=== PATIENT | male | born 1940 | race Caucasian/White ===

== ENCOUNTER 2016-08-09 09:28 | Observation (INO) | payer MEDICARE ==
--- NOTE | 2016-08-09 09:44 | ED ---
General Adult HPI - General Stated complaint: Flank Pain Time Seen by Provider: 08/09/16 09:28 Source: RN notes reviewed - History of Present Illness Initial comments: This is a 75-year-old male who presents to the emergency department with bilateral rib and upper abdominal pain. Patient states his been ongoing for 3 weeks. Patient states it occurs typically after he is been laying down for a while and he tries to stand up and when he goes to stand up he has quite significant pain at or under the ribs on both sides anteriorly he states once he gets up and walks around the pain subsides and is pretty much good all day. Patient states if he takes a nap during the day it reoccurs. Patient states today he got up and the pain was so severe that he almost passed out. He did not pass out however. Patient states because of the severity of the pain today he went to the emergency department at [facility]. [facility] worked the patient up and did not find a cause for his pain and decided to transfer the patient to us in case the pain was neurological in nature. Patient states currently he is in no pain he stood up off the ambulance gurney onto the bed in the emergency department without eliciting any pain. Patient states at no time is short of breath he denies any recent fever or chills he's denied any recent injury patient denies any nausea vomiting diarrhea. Patient denies any anterior central chest pain. Patient states he believes the reason he almost passed out today was because of the severity of the pain. Patient denies any back pain. Patient denies any rashes or lesions. Patient states the episode of near-syncope only occurred this morning and at no other time - Related Data Home Medications Medication Instructions Recorded Confirmed Metoprolol Succinate [Toprol XL] 50 mg PO DAILY 08/09/16 08/09/16 Multivitamin [Men's Multi-Vitamin] 1 tab PO DAILY 08/09/16 08/09/16 Allergies Allergy/AdvReac Type Severity Reaction Status Date / Time No Known Allergies Allergy Verified 08/09/16 10:32 Review of Systems ROS Statement: Those systems with pertinent positive or pertinent negative responses have been documented in the HPI. ROS Other: All systems not noted in ROS Statement are negative. General Exam - General Exam Comments Initial Comments: GENERAL: Patient is well-developed and well-nourished. Patient is nontoxic and well- hydrated and is in no acute distress. ENT: Neck is soft and supple. No significant lymphadenopathy is noted. Oropharynx is clear. Moist mucous membranes. Neck has full range of motion without eliciting any pain. EYES: The sclera were anicteric and conjunctiva were pink and moist. Extraocular movements were intact and pupils were equal round and reactive to light. Eyelids were unremarkable. PULMONARY: Unlabored respirations. Good breath sounds bilaterally. No audible rales rhonchi or wheezing was noted. CARDIOVASCULAR: There is a regular rate and rhythm without any murmurs gallops or rubs. ABDOMEN: Soft and nontender with normal bowel sounds. No palpable organomegaly was noted. There is no palpable pulsatile mass. SKIN: Skin is clear with no lesions or rashes and otherwise unremarkable. NEUROLOGIC: Patient is alert and oriented x3. Cranial nerves II through XII are grossly intact. Motor and sensory are also intact. Normal speech, volume and content. Symmetrical smile. MUSCULOSKELETAL: Normal extremities with adequate strength and full range of motion. No lower extremity swelling or edema. No calf tenderness. LYMPHATICS: No significant lymphadenopathy is noted PSYCHIATRIC: Normal psychiatric evaluation. Normal interpersonal interactions appears functionally intact in deals appropriately with others. No signs of depression. No signs of anxiety. Course Vital Signs 08/09/16 08/09/16 08/09/16 09:36 09:44 09:51 Temperature 99.1 F Pulse Rate 97 78 84 Respiratory 16 16 18 Rate Blood Pressure 213/114 198/95 180/87 O2 Sat by Pulse 97 99 98 Oximetry 08/09/16 11:00 Temperature 97.5 F L Pulse Rate 84 Respiratory 16 Rate Blood Pressure 184/91 O2 Sat by Pulse 98 Oximetry Medical Decision Making - Medical Decision Making Patient states that he believes his abdomen seems more distended over the last 3 weeks and he also states that he hasn't had normal bowel movements recently. Patient states he also has been cutting on all sweets and beer because he thinks he was gaining weight. States to me that he has never had a colonoscopy. Disposition Clinical Impression: Near syncope, Upper abdominal pain Disposition: ADMITTED IP TO [facility] Time of Disposition: 11:32
[2016-08-09] MEDS ORDERED: LABETALOL SYRINGE 5 MG/ML IVP STA (09:45)
[2016-08-09] MEDS ORDERED: SODIUM CHLORIDE 0.9% 1,000 ML IV ONE (11:32)
[2016-08-09] MEDS ORDERED: ACETAMINOPHEN TAB 325 MG TAB PO PRN (14:49)
[2016-08-09] MEDS ORDERED: ALPRAZolam 0.25 MG TAB PO PRN (14:49)
[2016-08-09] MEDS ORDERED: ONDANSETRON 4 MG/2 ML VIAL IVP PRN (14:49)
[2016-08-09] MEDS ORDERED: traMADol 50 MG TAB PO PRN (14:49)
[2016-08-09] MEDS ORDERED: NALOXONE 0.4 MG/ML 1 ML VIAL IV PRN (14:49)
[2016-08-09] MEDS: ENOXAPARIN 40 MG/0.4 ML SYRINGE SQ SCH (17:01)
--- NOTE | 2016-08-09 19:08 | US ---
EXAMINATION TYPE: US carotid duplex BILAT DATE OF EXAM: 08/09/2016 4:55 PM COMPARISON: NONE CLINICAL HISTORY: syncope. EXAM MEASUREMENTS: RIGHT: Peak Systolic Velocity (PSV) cm/sec ----- Right CCA: 74.8 ----- Right ICA: 77.2 ----- Right ECA: 97.1 ICA/CCA ratio: 1.0 RIGHT: End Diastole cm/sec ----- Right CCA: 16.6 ----- Right ICA: 24.2 ----- Right ECA: 7.9 LEFT: Peak Systolic Velocity (PSV) cm/sec ----- Left CCA: 84.5 ----- Left ICA: 93.4 ----- Left ECA: 147.7 ICA/CCA ratio: 1.1 LEFT: End Diastole cm/sec ----- Left CCA: 13.4 ----- Left ICA: 26.8 ----- Left ECA: 11.2 VERTEBRALS (direction of flow): Right Vertebral: Antegrade Left Vertebral: Antegrade TECHNOLOGIST IMPRESSION: Patient had very tortuous vessels, no significant velocity elevations in bi lateral RENNY's IMPRESSION: There is antegrade flow in the vertebral arteries. The images and measurements suggest c lose to 20% stenosis in both internal carotid arteries. Criteria for Assigning % of Stenosis / Diameter reduction (Estimation based on the indirect measurements of the internal carotid artery velocities (ICA PSV). 1. Normal (no stenosis)=ICA PSV < 125 cm/s: ratio < 2.0: ICA EDV<40 cm/s. 2. Less than 50% stenosis=ICA PSV < 125 cm/s: ratio < 2.0: ICA EDV<40 cm/s. 3. 50 to 69% stenosis=ICA PSV of 125 to 230 cm/s: ration 2.0 ? 4.0: ICA EDV 40-100 cm/s. 4. Greater than 70% stenosis to near occlusion= ICA PSV > 230 cm/s: ratio > 4.0: ICA EDV > 100 cm/s. 5. Near occlusion= ICA PSV velocities may be low or undetectable: variable ratio and ICA EDV. 6. Total occlusion=unable to detect flow.
[2016-08-09] MEDS ORDERED: MAGNESIUM HYDROXIDE 2,400 MG/10 ML CUP PO PRN (20:34)
--- NOTE | 2016-08-09 20:37 | P.GSCN ---
History of Present Illness Consult date: 08/09/16 Reason for Consult: Abdominal pain History of present illness: Patient has had a three-week history of progressive abdominal bloating and discomfort. He states he is having more constipation than previously. Some mild nausea at times but no vomiting. He is passing flatus normally. No prior colonoscopy. He has also been having complaints of rib pain that particularly aggravated in the evening hours. He has tried dieting with no success. Denies rectal bleeding or melena. He was also having some neurologic issues and was sent to our hospital for evaluation. No x-rays obtained thus far. We are asked to see this patient for abdominal pain. 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 History of Any Multi-Drug Resistant Organisms: None Reported Past Surgical History: Adenoidectomy, Tonsillectomy Additional Past Surgical History / Comment(s): R eye muscle surgery, multiple basal skin cancer removals, melanoma removed from R side of neck. Past Anesthesia/Blood Transfusion Reactions: No Reported Reaction Additional Past Anesthesia/Blood Transfusion Reaction / Comm: Pt received blood as a child without reaction Past Psychological History: No Psychological Hx Reported Additional Psychological History / Comment(s): Pt resides with his spouse. He is independent. Smoking Status: Never smoker Past Alcohol Use History: None Reported, Daily, Occasional Additional Past Alcohol Use History / Comment(s): Pt drank beer regularly (over 14 beers a week) up until 3 weeks ago. Past Drug Use History: None Reported - Past Family History Father Family Medical History: Cancer Additional Family Medical History / Comment(s): Father had "heart problems". He of skin cancer (pt believes might have been melanom) at the age of 66yrs. Mother Additional Family Medical History / Comment(s): Mother had "heart problems". She at the age of 67yrs. Medications and Allergies Home Medications Medication Instructions Recorded Confirmed Type Metoprolol Succinate [Toprol XL] 50 mg PO DAILY 08/09/16 08/09/16 History Multivitamin [Men's Multi-Vitamin] 1 tab PO DAILY 08/09/16 08/09/16 History Allergies Allergy/AdvReac Type Severity Reaction Status Date / Time No Known Allergies Allergy Verified 08/09/16 10:32 Surgical - Exam Vital Signs Temp Pulse Resp BP Pulse Ox 99.1 F 97 16 213/114 97 08/09/16 09:36 08/09/16 09:36 08/09/16 09:36 08/09/16 09:36 08/09/16 09:36 Physical exam: General: Well-developed, well-nourished HEENT: Normocephalic, sclerae nonicteric Abdomen: Nontender, nondistended Extremities: No edema Neuro: Alert and oriented Assessment and Plan (1) Upper abdominal pain Narrative/Plan: Patient's rib pain may be on the basis of costochondritis. Chronic constipation will need to be addressed but likely could be evaluated by colonoscopy as an outpatient. We'll check abdominal x-rays. We'll also provide stool softeners at this time. If the patient's abdominal x-rays are nonspecific would advance diet at that time. Status: Acute
[2016-08-09] MEDS ORDERED: MELATONIN 3 MG TABLET PO PRN (21:00)
--- NOTE | 2016-08-09 21:09 | XR ---
EXAMINATION TYPE: XR abdomen complete w decub DATE OF EXAM: 08/09/2016 9:05 PM COMPARISON: NONE HISTORY: Constipation. Abdominal pain. TECHNIQUE: 5 views FINDINGS: There is no sign of intestinal obstruction or pneumoperitoneum. Fecal pattern is normal. There is no sign of a mass. Lung bases are clear. There are no pathologic calcifications over the kidneys. I see no significant retained fecal material. IMPRESSION: Nonacute abdomen. No sign of constipation.
[2016-08-09] MEDS ORDERED: LACTULOSE 20 GM/30 ML CUP PO ONE (22:15)
--- NOTE | 2016-08-09 22:53 | HP ---
DATE OF ADMISSION: 08/09/2016 PRESENTING COMPLAINT: Rib cage pain. Tired. HISTORY OF PRESENTING COMPLAINT: This is a 75-year-old patient of Dr. Helton who went down to [facility] this morning. Patient has been noting bilateral pain below the rib cage every time he tries to get up. He does okay getting around during the day. Patient also has noticed abdominal bloating going on for some time. Denies any edema. Patient has noticed some numbness and tingling in the feet. Patient was drinking at least 4 to 5 beers a day, 7 days a week, for over 50 years. About 3 weeks ago he started to cut back, started altering his diet in an attempt to get healthy. He was sent in because of workup for the same. Patient denies any focal weakness. No change in vision. No headaches. REVIEW OF SYSTEMS: CONSTITUTIONAL: Tired. HEENT: None. RESPIRATORY: None. CARDIOVASCULAR: None. GASTROINTESTINAL: Some constipation. GENITOURINARY: None. MUSCULOSKELETAL: As above. DERMATOLOGICAL: Some changes in the skin. HEMATOLOGICAL: None. LYMPHATICS: None. PSYCHIATRY: None. NEUROLOGICAL: Numbness and tingling in the feet. PAST MEDICAL HISTORY: 1. Hypertension. 2. Basal cell cancer removed. 3. Some vision less (quadrantanopia) from CVA. 4. Polio as a child. 5. Spinal meningitis as a child. PAST SURGICAL HISTORY: 1. Adenoidectomy. 2. Tonsillectomy. 3. Right eye muscle surgery. 4. Melanoma. SOCIAL HISTORY: . No smoking. Drinking 4 to 5 beers 7 days a week until about 3 weeks ago. That is about 35 beers a week. FAMILY HISTORY: Father had heart problems. HOME MEDICATIONS: 1. Multivitamin 1 tablet p.o. daily. 2. Toprol XL 50 mg daily. ALLERGIES: NONE. On examination, temperature 97.8, pulse 84, respiration 18, blood pressure 159/88, pulse ox 97% on room air. Initially patient's blood pressure went up to 180s prior to that. GENERAL APPEARANCE: Well built; BMI of 30.4. Lying in bed. EYES: Pupils equal. Conjunctivae normal. HEENT: Oral cavity normal. NECK: JVD not raised. Mass not palpable. RESPIRATORY: Effort normal. LUNGS: Fair air entry. CARDIOVASCULAR: First and second sounds normal. No edema. ABDOMEN: Distended, soft, with some divarication of the recti with weak abdominal wall muscle; maybe 2 fingers. Liver palpable. LYMPHATICS: No lymph node palpable in neck or axillae. PSYCHIATRY: Alert and oriented x3. Mood and affect normal. NEUROLOGICAL: Pupils equal. Cranial nerves grossly intact. Some decreased sensation in the feet. DERMATOLOGICAL: Spider nevi in the upper chest wall and the face. ASSESSMENT: 1. Essential hypertension, uncontrolled, present on admission. 2. Divarication of recti. 3. Signs of chronic liver disease from chronic alcoholism over the years. 4. 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 PLAN: At this point patient was told to continue to stay away from alcohol. Will get abdominal ultrasound to assess for liver disease. Will also check patient's LFTs. Will check patient's B12 level. Will supplement the patient with thiamine and folic acid. Patient has been changing his diet for the last 2 weeks; hence probably ( ) manifestation as well. Constipation. Care was discussed in detail with the patient.
[2016-08-10] MEDS: METOPROLOL TARTRATE 50 MG TAB PO SCH ×2 (02:24→09:46)
[2016-08-10 07:14] LABS: Basophils % (A) 0 %; CH 31.3; CHCM 34.9; Eosinophils # (A) 0.1 k/uL (0-0.7); Eosinophils % (A) 2 %; HCT 41.8 % (39.0-53.0); HDW 3.03; Luc # (Auto) 0.17; Luc % (Auto) 2; Lymphocytes # (A) 1.1 k/uL (1.0-4.8); Lymphocytes % (A) 13 %; MCH 30.1 pg (25.0-35.0); MCHC 33.4 g/dL (31.0-37.0); MCV 90.1 fL (80.0-100.0); Mean Platelet Volume 7.4; Monocytes # (A) 0.5 k/uL (0-1.0); Monocytes % (A) 6 %; Neutrophils # (A) 6.9 k/uL (1.3-7.7); Neutrophils % (A) 78 %; RBC 4.64 m/uL (4.30-5.90); RDW 13.3 % (11.5-15.5); WBC 8.9 k/uL (3.8-10.6); WBC (Perox) 8.94
[2016-08-10 07:36] LABS: ALT 48 U/L (21-72); AST 32 U/L (17-59); Alkaline Phosphatase 75 U/L (38-126); Anion Gap 8 mmol/L; Blood Urea Nitrogen 12 mg/dL (9-20); Calcium 8.9 mg/dL (8.4-10.2); Carbon Dioxide 27 mmol/L (22-30); Chloride 107 mmol/L (98-107); Glucose 86 mg/dL (74-99); Non-African American GFR(MDRD) >60 (>60 ml/min/1.73 sqM); Potassium 4.5 mmol/L (3.5-5.1); Sodium 142 mmol/L (137-145); Total Bilirubin 1.7 mg/dL (0.2-1.3); Total Protein 6.4 g/dL (6.3-8.2)
--- NOTE | 2016-08-10 08:12 | US ---
EXAMINATION TYPE: US abdomen complete DATE OF EXAM: 08/10/2016 7:42 AM COMPARISON: NONE CLINICAL HISTORY: assess for alcohol related pathology/abd distension. Abdominal pain, constipation EXAM MEASUREMENTS: Liver Length: 18.3 cm Gallbladder Wall: 0.3 cm CBD: 0.3 cm Spleen: 13.3 cm Right Kidney: 12.0 x 5.9 x 4.6 cm Left Kidney: 12.2 x 5.2 x 4.6 cm TECHNOLOGIST IMPRESSION: Pancreas: limited evaluation due to overlying bowel content Liver: enlarged, attenuating, heterogeneous Gallbladder: non-mobile hyperechoic areas noted, largest = 0.6cm Evidence for sonographic Magallanes's sign: no CBD: appears wnl Spleen: upper limits of normal Right Kidney: no evidence of hydronephrosis Left Kidney: no evidence of hydronephrosis Upper IVC: wnl Abd Aorta: visualized portions appear wnl NO evidence of abdominal ascites at this time IMPRESSION: 1. POOR VISUALIZATION OF THE PANCREAS. 2. HEPATOMEGALY AND PROBABLE FATTY INFILTRATION. 3. GALLBLADDER POLYPS.
[2016-08-10 08:20] VITALS: PULSE 76; RESP 18; TEMP 98.5
[2016-08-10] MEDS ORDERED: CHLORTHALIDONE 25 MG TAB PO SCH (09:00)
[2016-08-10] MEDS ORDERED: METOPROLOL SUCCINATE (ER) 50 MG TAB.ER.24H PO SCH (09:00)
--- NOTE | 2016-08-10 09:35 | CONS ---
DATE OF CONSULTATION: 08/09/2016 CHIEF COMPLAINT: Near syncope. HISTORY OF PRESENT ILLNESS: Mr. Epperson is a pleasant 75-year-old male who is being evaluated today on 08/09/2016 by the Neurology Service per the request of Dr. Cifuentes for a near syncopal episode. The patient states that he has been having abdominal pain and chest wall pain over the past 3 weeks. The pain mainly occurs when he stands up from a sitting or from a laying down position. Early this morning, when he stood up, he felt such a severe pain that he became lightheaded and almost passed out. He did not lose consciousness and did not have any lateralizing numbness or tingling. He denied having any headache. A carotid Doppler was done, but the results are pending. At the time of my evaluation, the patient is lying in his bed and appears to be in no acute distress. He denies any recurrence of any presyncopal symptoms since his arrival. He continues to complain of abdominal pain. PAST MEDICAL HISTORY: Hypertension and benign prosthetic hypertrophy. SOCIAL HISTORY: He denies any tobacco, alcohol or drug use. FAMILY HISTORY: Noncontributory. HOME MEDICATIONS: Reviewed in the chart. ALLERGIES: No known drug allergies. REVIEW OF SYSTEMS: Per history of present illness and otherwise negative. PHYSICAL EXAM: Vital signs show a temperature of 97.8, pulse 96, respirations 18, blood pressure 159/88. GENERAL APPEARANCE: The patient is a well-developed, elderly male who appears to be in no acute distress. HEENT: Normocephalic, atraumatic, no facial asymmetry is seen, exotropia is noticed in the right eye. Neck is supple with no masses felt. CARDIOVASCULAR: Regular rate and rhythm. ABDOMEN: Mildly distended and tenderness to palpation is present. Extremities showed no edema or clubbing. NEUROLOGICAL EXAM: The patient is alert, aware, and oriented x3. Speech and language are normal. Strength is full in all 4 extremities. Sensory exam was normal to light touch in all 4 extremities. Cranial nerve testing showed visual field cuts involving both eyes, mostly in the peripheral vision, which is chronic according to the patient. Exotropia is noticed in the right eye. No facial asymmetry is seen. No tremors or seizure-like activity is noticed. IMPRESSION: 1. Near syncopal spell. 2. Abdominal pain. 3. Atypical chest pain. RECOMMENDATION: The patient's near syncopal episode was not felt to be due to any neurological etiology. He may have had a slight vasovagal episode due to the severity of the pain that he fell at that moment. An EEG has already been ordered. His carotid Doppler is pending. I do recommend further work-up for his abdominal pain and chest wall pain, which has been occurring on and off for the past 3 weeks. I will continue to follow with you. Further recommendations to follow. Thank you for allowing me to be in the care of your patient. If you have any questions, please feel free to contact me.
[2016-08-10] MEDS: ENOXAPARIN 40 MG/0.4 ML SYRINGE SQ SCH ×2 (09:46→09:50)
[2016-08-10 10:56] VITALS: BP 158/90
[2016-08-10 14:24] LABS: Vitamin B12 604 pg/mL
--- NOTE | 2016-08-11 09:01 | EEG ---
DATE OF SERVICE: 08/10/2016 INDICATIONS FOR EXAMINATION: Near syncope and dizziness. AGE: 75Y DESCRIPTION OF PROCEDURE: This EEG was performed using a 21 channel digital electroencephalograph following international 10-20 system. DESCRIPTION OF THE RECORDING: From the beginning of the tracing, with the patient's eyes closed, the background rhythm was mostly consisting of 9-10 Hz alpha frequency in the posterior occipital leads. No obvious asymmetry is seen. Photic stimulation was performed with a minimal driving response seen. No pathological waves were elicited. Hyperventilation was not performed. Rare movement artifacts are seen. The patient remains awake throughout the tracing. No epileptiform discharges were seen. His EKG lead showed a regular rate and rhythm. INTERPRETATION: This awake EEG can be considered within normal limits. There was no asymmetry seen. No epileptiform discharges were noticed. The absence of epileptiform discharges does not rule out the diagnosis of epilepsy. Therefore, clinical correlation is recommended.
--- NOTE | 2016-08-11 20:24 | DS ---
DATE OF ADMISSION: 08/09/2016 DATE OF DISCHARGE: 08/10/2016 FINAL DIAGNOSIS(ES): 1. Essential hypertension, uncontrolled on presentation. 2. ( ) of recti. 3. Chronic liver disease from chronic alcoholism over the years. 4. Chronic alcoholic use. 5. Peripheral neuropathy secondary to alcoholism. 6. Hepatomegaly from alcoholism. HOSPITAL COURSE: This patient presented weak, tired, numbness, tingling in the feet. Drinks about 5 to 7 beers a day over a long period time to use. The patient found to have signs of chronic liver disease. Ultrasound did show hepatomegaly. The patient's abdominal muscles found to be weak ( ) of recti. Patient's blood pressure is running high. Blood pressure medications were adjusted. Today the patient and were discussed at length about the alcohol. I also spoke to patient's family doctor Dr. Helton over the phone and gave her an update. Patient seen by Dr. Chung from neurology. Nothing significant was found. The patient was also seen by Dr. Hung from general surgery. Patient was counseled extensively today. On examination, lungs are clear. ABDOMEN: Wall is weak. DISCHARGE MEDICATIONS: 1. Men's multivitamin 1 tablet p.o. daily. 2. Chlorthalidone 25 mg a day. 3. Melatonin 3 mg p.o. q.h.s. p.r.n. 4. Lopressor 50 mg p.o. b.i.d. 5. MiraLax 17 grams p.o. Sunday, Sunday and Sunday. Patient told to abstain from alcohol. Follow up with Dr. Helton in 3 days. Discharge planning more than 35 minutes.
== END 2016-08-10 14:20 | disposition home or self-care (01) ==
LOC: EC 09:28 → 3OBS 11:34
PROVIDERS: ADMIT Hospitalist; ATTEND Hospitalist
DX: K70.9 Alcoholic liver disease, unspecified (principal); I10 Essential (primary) hypertension; F10.20 Alcohol dependence, uncomplicated; G62.1 Alcoholic polyneuropathy; I69.398 Other sequelae of cerebral infarction; H54.7 Unspecified visual loss; K59.09 Other constipation; Z79.899 Other long term (current) drug therapy; R55 Syncope and collapse; R16.0 Hepatomegaly, not elsewhere classified
CPT/HCPCS: 95816; 80053; 82607; 85025; 74020; 76700; 93880; 99285; 96374; 96361; G0378 ×2; J1650; 96372

== ENCOUNTER → 2022-09-28 | Outpatient (CLI) | payer MEDICARE ==
--- NOTE | 2022-09-28 18:37 | MR ---
EXAMINATION TYPE: MR Prostate wo/w con DATE OF EXAM: 09/28/2022 COMPARISON: None. IMAGE QUALITY: Satisfactory.. INDICATION: PROSTATE CA 1 YR AGO, BIOPSY DONE DR HERZOG, PSA RESULTS IN PACS PSA: 14.30 ng/ml on September 05, 2022 increased from 8.40 on May 08, 2022. Recent Biopsy and Date: September 27, 2021 Pathology Report (If Applicable): Right lateral base atypia. Right mid atypia. Left lateral mid adeno carcinoma Lyle grade 3+3 = 6 approximate 1 mm length and 10% of tissue. Left mid adenocarcinoma Gl anabel grade 3+3 = 6 measures 3 mm in length approximately 50% of tissue. TECHNIQUE: Examination was performed using a 3T MRI without an endorectal coil. Multiparametric imaging was perf ormed with T2 mutliplanar sequences, axial diffusion weighted imaging and dynamic contrast enhanced i maging, utilizing 8.5 mL intravenous Gadavist gadolinium contrast. FINDINGS: There is no clinically significant cancer identified. PROSTATE VOLUME: 3.8 cm SI x 5.0 cm AP x 4.9 cm LR Vol= 48.75 cc PSA DENSITY: 0.29 ng/ml/cc Thickening of the peripheral zone with areas of indistinct hypointensity on ADC mapping right mid asp ect image 88 series 805 showing T2 hypointensity. No significant restricted diffusion. No areas of mo derate severe diminished signal on ADC mapping or significant restricted diffusion. Central transitio nal bones shows no suspicious hypoechoic areas or lesions on T2 weighted images. No significant areas of increased signal on diffusion-weighted imaging. A capsule fairly well preserved. Seminal vesicles show asymmetric diminished size or atrophy on the l eft. Urinary bladder shows mild to moderate wall thickening and mild to minimal trabeculation. No pel elliott fluid collection is seen. Visualized osseous structures shows diminished T1 and increased T2 sign al in visualized portion of the upper to mid sacrum. IMPRESSION: Enlarged prostate. A focus of clinically significant cancer is not identified. Highest Assessment Category: 2 MRI Stage: T1c N0 M0 based on review of pelvic images. False negative rates for MRI range from 5-20% depending on risk profile. Recommendation: Consider repeat random prostate biopsy due to rising PSA without definitive suspiciou s focal lesion on MRI. Abnormal bone marrow signal in the upper to mid sacrum could reflect insuffici ency fracture versus other etiology. Correlate clinically and follow-up advised. Assessment Categories: 1 ? Very low (clinically significant cancer is highly unlikely to be present) 2 ? Low (clinically significant cancer is unlikely to be present) 3 ? Intermediate (the presence of clinically significant cancer is equivocal) 4 ? High (clinically significant cancer is likely to be present) 5 ? Very high (clinically significant cancer is highly likely to be present) Locations: PZ = peripheral zone; TZ = transition zone CZ=central zone; AFS = anterior fibromuscular stroma a=anterior half (i.e. PZa=anterior half of peripheral zone); pm= posterior medial (i.e PZpm) pl = postero-lateral (i.e. PZpl); p = posterior half (i.e. TZp) ; a = anterior half (i.e TZa or P Za) Other: N=no or no; E= equivocal; Y=yes EPE = extraprostatic extension NVB = neurovascular bundle NA = not applicable/not available
== END | disposition home or self-care (01) ==
LOC: RADMRIMAIN 08:38
PROVIDERS: ATTEND Urology
DX: C61 Malignant neoplasm of prostate (principal); N40.0 Benign prostatic hyperplasia without lower urinary tract symptoms
CPT/HCPCS: 72197; A9585